=== PATIENT | male | born 1960 | race Caucasian/White ===

== ENCOUNTER 2018-08-28 01:20 | Inpatient (IN) | payer OTHER ==
--- NOTE | 2018-08-28 01:23 | ED ---
Chest Pain HPI - General Stated Complaint: Chest Pain Time Seen by Provider: 08/28/18 01:21 - History of Present Illness Initial Comments: Is a 57-year-old gentleman with a history of known coronary artery disease, hyperlipidemia and hypertension. Patient has a known history of coronary artery disease with stenting in the past, most recently patient reports that he was stented approximately a month ago while visiting [place]. Patient reports that since that time he has been compliant with his aspirin, Brilenta and metoprolol, he is only been intermittently compliant with his statin medication. Patient reports that this evening he was sitting in his chair he had been perusing the Internet when he began to feel some chest pain. He describes it as a pressure in his left chest identical to previous acute coronary events. Patient reports that the pain was approximately a 5 out of 10 in intensity. Pain persisted for over an hour before he decided to call EMS. Upon EMS arrival he was given oxygen, 324 of aspirin and nitro. Patient reports that the discomfort decreased from a 5 out of 10 intensity to a 2 out of 10 in intensity after nitro. - Related Data Home Medications Medication Instructions Recorded Confirmed Aspirin [Adult Low Dose Aspirin EC] 81 mg PO 08/28/18 08/28/18 Atorvastatin [Lipitor] 40 mg PO HS 08/28/18 08/28/18 Metoprolol Tartrate [Lopressor] 12.5 mg PO BID 08/28/18 08/28/18 Ticagrelor [Brilinta] 90 mg PO BID 08/28/18 08/28/18 Allergies Allergy/AdvReac Type Severity Reaction Status Date / Time No Known Allergies Allergy Verified 08/28/18 01:35 Review of Systems ROS Statement: Those systems with pertinent positive or pertinent negative responses have been documented in the HPI. ROS Other: All systems not noted in ROS Statement are negative. EKG Findings - EKG Comments: EKG Findings:: EKG was obtained at 1:26 AM for evaluation of chest pain EKG with a rate of 57 now complex rhythm is sinus bradycardia, there is normal axis, there are normal intervals, VA 150, QRS 118, QTC is 395. There are ST depressions in lead 2 T wave inversions in lead [address] elevations. There are no previous EKGs for comparison. Past Medical History - Past Family History Mother Additional Family Medical History / Comment(s): had cardiac issues; anuerysm General Exam - General Exam Comments Initial Comments: Physical Exam GENERAL: Patient is well-developed and well-nourished. Patient is nontoxic and well- hydrated and is in no distress. HENT: Normocephalic, Atraumatic. EYES: PERRL, EOMI PULMONARY: Unlabored respirations. No audible rales rhonchi or wheezing was noted. CARDIOVASCULAR: There is a regular rate and rhythm without any murmurs gallops or rubs. ABDOMEN: Soft and nontender with normal bowel sounds. SKIN: Skin is clear with no lesions or rashes and otherwise unremarkable. : Deferred NEUROLOGIC: Patient is alert and oriented x3. Moving all extremities spontaneously MUSCULOSKELETAL: Normal extremities with adequate strength and full range of motion. No lower extremity swelling or edema. No calf tenderness. PSYCHIATRIC: Normal psychiatric evaluation. Limitations: no limitations Course Vital Signs 08/28/18 08/28/18 08/28/18 01:25 01:29 03:21 Temperature 98.6 F Pulse Rate 61 56 L 56 L Pulse Rate [ Pulse Oximetery ] Respiratory 16 20 20 Rate Blood Pressure 146/79 146/79 146/86 Blood Pressure [Right Arm] O2 Sat by Pulse 98 99 100 Oximetry 08/28/18 08/28/18 04:00 04:04 Temperature 97.8 F 98.6 F Pulse Rate 50 L Pulse Rate [ 55 L Pulse Oximetery ] Respiratory 16 16 Rate Blood Pressure 141/82 Blood Pressure 144/81 [Right Arm] O2 Sat by Pulse 99 99 Oximetry Chest Pain [facility] The patient was seen and evaluated, history is obtained from the patient and at bedside next line patient is a 57-year-old gentleman with known coronary artery disease presenting with pressure-like chest pain that began without p rovocation. The patient describes the pain is identical to previous cardiac events EKG sinus bradycardia, Q waves in inferior leads, no acute ST elevations Cardiac workup was initiated Patient with mild elevation of trop, will admit for serial trops and evaluation by cardiology Patient reports chest pain never more than 2/10 in the ER The patient care was discussed with Dr. Stevie Duran who accepts the admission with consult to cardiology. Disposition Clinical Impression: Chest pain, Elevated troponin Disposition: ADMITTED IP TO THIS HOSP Condition: Stable Is patient prescribed a controlled substance at d/c from ED?: No
[2018-08-28 02:18] LABS: Basophils % (A) 1 %; Eosinophils # (A) 0.1 k/uL (0-0.7); Eosinophils % (A) 3 %; HCT 43.2 % (39.0-53.0); HGB 14.4 gm/dL (13.0-17.5); Lymphocytes # (A) 1.3 k/uL (1.0-4.8); Lymphocytes % (A) 28 %; MCH 29.2 pg (25.0-35.0); MCHC 33.4 g/dL (31.0-37.0); MCV 87.5 fL (80.0-100.0); Mean Platelet Volume 6.9; Monocytes # (A) 0.4 k/uL (0-1.0); Monocytes % (A) 8 %; Neutrophils # (A) 2.6 k/uL (1.3-7.7); Neutrophils % (A) 57 %; Platelet Count 201 k/uL (150-450); RBC 4.94 m/uL (4.30-5.90); RDW 13.3 % (11.5-15.5); WBC 4.6 k/uL (3.8-10.6)
--- NOTE | 2018-08-28 02:22 | XR ---
EXAM: XR Chest, 2 Views CLINICAL HISTORY: ITS.REASON XR Reason: Chest Pain TECHNIQUE: Frontal and lateral views of the chest. COMPARISON: No relevant prior studies available. FINDINGS: Lungs: No consolidation or mass. Pleural space: No effusion. Heart: No cardiomegaly. Mediastinum: Unremarkable. IMPRESSION: No acute cardiopulmonary process.
[2018-08-28 02:32] LABS: Albumin 4.2 g/dL (3.5-5.0); Calcium 9.5 mg/dL (8.4-10.2); Magnesium 2.2 mg/dL (1.6-2.3); Potassium 4.3 mmol/L (3.5-5.1); Total Bilirubin 0.4 mg/dL (0.2-1.3); Total Protein 7.1 g/dL (6.3-8.2)
[2018-08-28] MEDS ORDERED: NITROGLYCERIN SL TABS 0.4 MG TAB SUBLINGUAL PRN ×3 (02:33→14:43)
[2018-08-28 02:48] LABS: INR 0.9 (<1.2); Partial Thromboplastin Time 25.3 sec (22.0-30.0); Prothrombin Time 9.9 sec (9.0-12.0)
[2018-08-28] MEDS: HEPARIN SOD,PORK IN 0.45% NACL 25,000 UNIT in 0.45% NACL 1 250ML.BAG IV SCH (03:17)
--- NOTE | 2018-08-28 05:46 | P.HPIM ---
History of Present Illness H&P Date: 08/28/18 Chief Complaint: Chest pain The patient is a 57-year-old male with a past medical history of hypertension, hyperlipidemia and coronary artery disease with stenting 5 who presents to the ER with chief complaint of chest pain. Apparently the patient recently had stenting X2 done approximately a month ago in [facility]. Today the patient was at rest playing with a fall and when he started having 5 out of 10 substernal dull achy squeezing chest pain with radiation to his back. He denied any sweats, nausea or vomiting but did report some shortness of br eath, the patient reported feeling that his discomfort was similar to his prior heart attack. He reports compliance with all of his cardiac medications including aspirin, Brilinta and his statin regimen. On arrival in the ER the patient received 4 baby aspirin and reported improvement of his chest pain with severity decreasing to 2 out of 10 after nitroglycerin. In the ER the patient had a comprehensive workup EKG showed sinus bradycardia with ST depression in leads 2 T wave inversions in lead [address] elevations. There are no previous EKGs for comparison. The patient's troponins were e levated at 0.068, NT- pro-BNP 226 Review of Systems Pertinent positives per HPI all other systems otherwise negative Past Medical History Past Medical History: Coronary Artery Disease (CAD), Chest Pain / Angina, Hyperlipidemia, Myocardial Infarction (AK) Last Myocardial Infarction Date:: 07/2018 History of Any Multi-Drug Resistant Organisms: None Reported Past Surgical History: Heart Catheterization, Heart Catheterization With Stent Additional Past Surgical History / Comment(s): AK in previous in [address]; AK in July 2018 with 2 stents placed Past Anesthesia/Blood Transfusion Reactions: No Reported Reaction Date of Last Stent Placement:: 2018 Past Psychological History: No Psychological Hx Reported Smoking Status: Never smoker - Past Family History Mother Additional Family Medical History / Comment(s): had cardiac issues; anuerysm Medications and Allergies Home Medications Medication Instructions Recorded Confirmed Type Aspirin [Adult Low Dose Aspirin EC] 81 mg PO 08/28/18 08/28/18 History Atorvastatin [Lipitor] 40 mg PO HS 08/28/18 08/28/18 History Metoprolol Tartrate [Lopressor] 12.5 mg PO BID 08/28/18 08/28/18 History Ticagrelor [Brilinta] 90 mg PO BID 08/28/18 08/28/18 History Allergies Allergy/AdvReac Type Severity Reaction Status Date / Time No Known Allergies Allergy Verified 08/28/18 01:35 Physical Exam Vitals: Vital Signs Temp Pulse Pulse Resp BP BP Pulse Ox 08/28/18 04:04 98.6 F 50 L 16 141/82 99 08/28/18 04:00 97.8 F 55 L 16 144/81 99 08/28/18 03:21 56 L 20 146/86 100 08/28/18 01:29 56 L 20 146/79 99 08/28/18 01:25 98.6 F 61 16 146/79 98 Intake and Output 08/27/18 08/27/18 08/28/18 14:59 22:59 06:59 Intake Total 920 Balance 920 Intake: IV 20 0.9@ 20 20 Amount of Fluid Infused ( 900 ml) Other: # Voids 1 Weight 72.6 kg Constitutional: No acute distress, conversant, pleasant Eyes: Anicteric sclerae, moist conjunctiva, no lid-lag, PERRLA ENMT: NC/AT,Oropharynx clear, no erythema, exudates Neck:Supple, FROM, no masses, or JVD, No carotid bruits; No thyromegaly Lungs: Clear to auscultation, Clear to percussion, Normal respiratory effort, no accessory muscle use Cardiovascular: Heart regular in rate and rhythm, No murmurs, gallops, or rubs no peripheral edema Abdominal: Soft Nontender, nom distended, no guarding, no rebound or rigidity, Normoactive bowel sounds No hepatomegaly, No splenomegaly, No palpable mass No abdominal wall hernia noted Skin: Normal temperature, tone, texture, turgor, No induration No subcutaneous nodules, No rash, lesions, No ulcers Extremities:No digital cyanosis No clubbing, Pedal pulses intact and symmetrical Radial pulses intact and symmetrical Normal gait and station, No calf tenderness Psychiatric: Alert and oriented to person, place and time, Appropriate affect Intact judgement Neuro: Muscles Strength 5/5 in all 4 extremities, Sensation to light touch grossly present throughout, Cranial nerves II-XII grossly intact. No focal sensory deficits Results CBC & Chem 7: 08/28/18 02:00 08/28/18 02:00 Labs: Abnormal Lab Results - Last 24 Hours (Table) 08/28/18 Range/Units 02:00 Troponin I 0.068 H* (0.000-0.034) ng/mL Thrombosis Risk Factor Assmnt - Choose All That Apply Any of the Below Risk Factors Present?: Yes Each Factor Represents 1 point: Acute AK, Age 41-60 years Other Risk Factors: No Other congenital or acquired thrombophilia - If yes, enter type in comment: No Thrombosis Risk Factor Assessment Total Risk Factor Score: 2 Thrombosis Risk Factor Assessment Level: Low Risk Assessment and Plan (1) Chest pain Current Visit: Yes Status: Acute Code(s): R07.9 - CHEST PAIN, UNSPECIFIED SNOMED Code(s): 67801424 (2) Presence of stent in coronary artery in patient with coronary artery disease Current Visit: Yes Status: Acute Code(s): I25.10 - ATHSCL HEART DISEASE OF [place] CORONARY ARTERY W/O ANG PCTRS; Z95.5 - PRESENCE OF CORONARY ANGIOPLASTY IMPLANT AND GRAFT SNOMED Code(s): 321861584 (3) Essential hypertension Current Visit: Yes Status: Acute Code(s): I10 - ESSENTIAL (PRIMARY) HYPERTENSION SNOMED Code(s): 00397073 (4) Bradycardia Current Visit: Yes Status: Acute Code(s): R00.1 - BRADYCARDIA, UNSPECIFIED SNOMED Code(s): 45455271 Plan: The patient is placed in observation anticipate a less than 2 midnight stay with atypical chest pain but does have a history of coronary artery disease with most recent stenting approximately a month ago, patient does have elevation of his troponin and does have noted a EKG abnormalities. Cardiology is consulted for further recommendations will plan a echocardiogram and we'll continue the patient on ACS order set with aspirin. Statin therapy and heparin drip. His home medications are continued including his Brilinta and Lopressor. Continue to follow patient's clinical course CODE STATUS: Full code Discussed plan of care with: Patient Anticipated discharge: 1-2 days Time with Patient: Greater than 30
[2018-08-28] MEDS: TICAGRELOR 90 MG TAB PO SCH ×2 (08:37→21:04)
[2018-08-28] MEDS ORDERED: METOPROLOL TARTRATE 25 MG TAB PO SCH (09:00)
[2018-08-28 09:08] LABS: Mean Platelet Volume 7.4; Platelet Count 195 k/uL (150-450)
--- NOTE | 2018-08-28 09:08 | P.CRDCN ---
History of Present Illness Consult date: 08/28/18 Requesting physician: Stevie Rea Consult reason: chest pain Chief complaint: Chest pain History of present illness: This is a pleasant 57-year-old gentleman with known history of hypert ension, hyperlipidemia, coronary artery disease with stenting of the RCA mid and proximal as well as PDA stenting 7 years ago in [facility], most recently approximately a month ago patient underwent angioplasty and stenting of the mid and proximal LAD while visiting in [place], resides in this area now. Patient presents to the hospital on this occasion with symptoms of midsternal chest pr essure and heaviness, he states that the symptoms reminded him of what he had prior to his stent placement. Patient was given sublingual nitroglycerin in the EMS, on arrival to the hospital again develop more symptoms. My examination this morning he is currently chest pain-free. His EKG on arrival here showed a normal sinus rhythm with inferior T-wave inversion, and nonspecific changes in the anterior leads. Chest x-ray did not reveal any acute process. I pressure on arrival here 146/78 with a heart rate of 60, 98% on room air. Blood pressure this morning 125/70 with a heart rate of 50, 98% on 2 L of oxygen. White blood cell count 4.6, hemoglobin 14.4, platelet count 201. Sodium 142, potassium 4.3, BUN 19 and creatinine 1.0. Magnesium 2.2. BNP level 226, troponin 0.068. At the time of my examination this morning, patient does have a dull pressure that he is rating approximately a 2 this morning. Past Medical History Past Medical History: Coronary Artery Disease (CAD), Chest Pain / Angina, Hyperlipidemia, Myocardial Infarction (CA) Last Myocardial Infarction Date:: 07/2018 History of Any Multi-Drug Resistant Organisms: None Reported Past Surgical History: Heart Catheterization, Heart Catheterization With Stent Additional Past Surgical History / Comment(s): CA in previous in [address]; CA in July 2018 with 2 stents placed Past Anesthesia/Blood Transfusion Reactions: No Reported Reaction Date of Last Stent Placement:: 2018 Past Psychological History: No Psychological Hx Reported Smoking Status: Never smoker - Past Family History Mother Additional Family Medical History / Comment(s): had cardiac issues; anuerysm Medications and Allergies Home Medications Medication Instructions Recorded Confirmed Type Aspirin [Adult Low Dose Aspirin EC] 81 mg PO 08/28/18 08/28/18 History Atorvastatin [Lipitor] 40 mg PO HS 08/28/18 08/28/18 History Metoprolol Tartrate [Lopressor] 12.5 mg PO BID 08/28/18 08/28/18 History Ticagrelor [Brilinta] 90 mg PO BID 08/28/18 08/28/18 History Allergies Allergy/AdvReac Type Severity Reaction Status Date / Time No Known Allergies Allergy Verified 08/28/18 08:38 Physical Exam Vitals: Vital Signs Temp Pulse Pulse Resp BP BP Pulse Ox 08/28/18 08:00 97.4 F L 55 L 20 125/79 98 08/28/18 04:04 98.6 F 50 L 16 141/82 99 08/28/18 04:00 97.8 F 55 L 16 144/81 99 08/28/18 03:21 56 L 20 146/86 100 08/28/18 01:29 56 L 20 146/79 99 08/28/18 01:25 98.6 F 61 16 146/79 98 Intake and Output 08/27/18 08/28/18 08/28/18 22:59 06:59 14:59 Intake Total 920 0 Balance 920 0 Intake: IV 20 0.9@ 20 20 Amount of Fluid Infused ( 900 ml) Oral 0 Other: # Voids 1 Weight 72.6 kg PHYSICAL EXAMINATION: GENERAL: 57-year-old gentleman in no acute distress at the time of my examination HEENT: Head is atraumatic, normocephalic. Pupils equal, round. Sclera anicteric. Conjunctiva are clear. Mucous membranes of the mouth are moist. Neck is supple. There is no elevated jugular venous pressure. No carotid bruit is heard. HEART EXAMINATION: Heart S1, S2 normal. No murmur or gallop heard. CHEST EXAMINATION: Lungs are clear to auscultation and precussion. No chest wall tenderness is noted on palpation or with deep breathing. ABDOMEN: Soft, nontender. Bowel sounds are heard. No organomegaly noted. EXTREMITIES: 2+ peripheral pulses with no evidence of peripheral edema and no calf tenderness noted. NEUROLOGIC patient is awake, alert and oriented 3 . . Results 08/28/18 02:00 08/28/18 02:00 Cardiac Enzymes 08/28/18 08/28/18 Range/Units 02:00 02:00 AST 25 (17-59) U/L Troponin I 0.068 H* (0.000-0.034) ng/mL Coagulation 08/28/18 Range/Units 02:00 PT 9.9 (9.0-12.0) sec APTT 25.3 (22.0-30.0) sec CBC 08/28/18 Range/Units 02:00 WBC 4.6 (3.8-10.6) k/uL RBC 4.94 (4.30-5.90) m/uL Hgb 14.4 (13.0-17.5) gm/dL Hct 43.2 (39.0-53.0) % Plt Count 201 (150-450) k/uL Comprehensive Metabolic Panel 08/28/18 Range/Units 02:00 Sodium 142 (137-145) mmol/L Potassium 4.3 (3.5-5.1) mmol/L Chloride 106 (98-107) mmol/L Carbon Dioxide 29 (22-30) mmol/L BUN 19 (9-20) mg/dL Creatinine 1.08 (0.66-1.25) mg/dL Glucose 99 (74-99) mg/dL Calcium 9.5 (8.4-10.2) mg/dL AST 25 (17-59) U/L ALT 33 (21-72) U/L Alkaline Phosphatase 89 (38-126) U/L Total Protein 7.1 (6.3-8.2) g/dL Albumin 4.2 (3.5-5.0) g/dL Current Medications Generic Name Dose Route Start Last Admin Trade Name Freq PRN Reason Stop Dose Admin Aspirin 325 mg 08/29/18 09:00 Aspirin PO DAILY [facility] Atorvastatin Calcium 40 mg 08/28/18 21:00 Lipitor PO HS [facility] Heparin Sodium/Sodium Chloride 250 mls @ 8.709 mls/hr 08/28/18 02:45 08/28/18 03:17 25,000 unit/ Sodium Chloride IV 12 units/kg/hr .Q24H ERA 8.709 mls/hr Administration Protocol 12 UNITS/KG/HR Metoprolol Tartrate 25 mg 08/28/18 09:00 Lopressor PO BID [facility] Nitroglycerin 0.4 mg 08/28/18 02:33 Nitrostat SUBLINGUAL Q5M PRN Chest Pain Ticagrelor 90 mg 08/28/18 09:00 08/28/18 08:37 Brilinta PO 90 mg BID ERA Administration Intake and Output 08/27/18 08/28/18 08/28/18 22:59 06:59 14:59 Intake Total 920 0 Balance 920 0 Intake: IV 20 0.9@ 20 20 Amount of Fluid Infused ( 900 ml) Oral 0 Other: # Voids 1 Weight 72.6 kg 08/28/18 02:00 08/28/18 02:00 EKG Interpretations (text) EKG shows normal sinus rhythm with inferior Assessment and Plan Plan: Assessment and plan #1 symptoms of midsternal chest pressure and heaviness, suggestive of possible acute coronary syndrome. Troponin 0.068. EKG shows normal sinus rhythm with T wave changes noted in the inferior leads #2 known history of coronary artery disease with prior RCA and PDA stenting 7 years ago, most recently patient underwent proximal and mid LAD stenting of months ago in [place] #3 hypertension #4 hyperlipidemia Plan We will obtain 2 subsequent troponins, obtain echocardiogram with Doppler study. Decrease aspirin to 81 mg daily as the patient is on Brilinta. Continue Brilinta, metoprolol, and Lipitor. According to the patient, he has been taking his medications regularly at home, however he does state that he has missed a few doses of statin. Patient has been advised to undergo repeat cardiac catheterization, the risks and the benefits were explained to him in detail and he is willing to proceed. Further recommendations to follow. DNP note has been reviewed, I agree with a documented findings and plan of care. Patient was seen and examined.
[2018-08-28] MEDS ORDERED: ALPRAZolam 0.5 MG TAB PO PRN (10:45)
[2018-08-28] MEDS ORDERED: SODIUM CHLORIDE 0.9% 1,000 ML in EMPTY BAG 1 BAG IV ONE (10:45)
[2018-08-28] MEDS ORDERED: ATORVASTATIN 80 MG TAB PO STA (10:45)
[2018-08-28] MEDS ORDERED: ALPRAZolam 0.25 MG TAB PO PRN (10:45)
[2018-08-28] MEDS ORDERED: ASPIRIN 325 MG TAB PO STA (10:45)
--- NOTE | 2018-08-28 11:19 | P.PN ---
Subjective Chart was reviewed and patient interviewed. Discussed with patient's nurse as well. Patient was admitted for chest pain and elevated troponin started on heparin drip and his home antiplatelets continued. Currently his chest pain-free. REVIEW OF SYSTEMS: CONSTITUTIONAL: No fever or chills HEENT: No changes in vision or voice CARDIOVASCULAR: no chest pain or abnormal heart beats, or any swelling in ankles or feet. RESPIRATORY: No wheezing or coughing. GASTROINTESTINAL: No abdominal pain, no nausea no vomiting no constipation or diarrhea GENITOURINARY: no any urinary urgency, frequency or burning, and there has been no blood in her urine. no flank pain. MUSCULOSKELETAL: She notes full range of motion of all her joints without pain or swelling. NEUROLOGICAL: , no headache. no vision changes, or fainting. No numbness or tingling. Objective - Vital Signs Vital signs: Vital Signs Temp 97.4 F L 08/28/18 08:00 Pulse 55 L 08/28/18 08:00 Resp 20 08/28/18 08:00 BP 125/79 08/28/18 08:00 Pulse Ox 98 08/28/18 08:00 Intake & Output 08/27/18 08/28/18 08/28/18 18:59 06:59 18:59 Intake Total 920 62.705 Balance 920 62.705 Weight 72.6 kg Intake: IV 20 0.9@ 20 20 Amount of Fluid Infused ( 900 ml) Intake, IV Titration 62.705 Amount Heparin Sod,Pork in 0.45% 62.705 NaCl 25,000 unit In 0.45 % NaCl 1 250ml.bag @ 12 UNITS/KG/HR 8.709 mls/hr IV .Q24H [facility] Rx#: [id number] Oral 0 Other: # Voids 1 - Exam Vital Signs: I have reviewed the vital signs. GENERAL: Well-nourished, Well-developed , no apparent distress, cooperative Eyes: PERRL, extraoculry movements intact, clear conjunctiva Head: : Atraumatic external nose and ears, oropharyngeal mucosa is moist without lesions or exudates Neck: Symmetric, trachea midline, No thyromegaly, no masses or neck vain pulsation, no neck rigidity CVS: +S1/S2, No murmurs or gallops. Peripheral pulses 2+ and equal in all extremities. RESP: Unlabored respiratory effort. Clear to auscultation bilaterally. Abdomen: Bowel sounds present in all 4 quadrants, Soft to palpation, Nontender/Nondistended, No hepatosplenomegaly, no hernias or masses, no CVA tnderness Musculoskeletal: Extremities w/o deformity, No cyanosis or clubbing, no joint swelling Skin: Warm, Dry. No rashes or lesions Psych: Awake, Alert, & Oriented (AAO) x3 Appropriate mood and affect - Labs CBC & Chem 7: 08/28/18 08:39 08/28/18 02:00 Labs: Abnormal Lab Results - Last 24 Hours (Table) 08/28/18 08/28/18 08/28/18 Range/Units 02:00 08:39 08:39 APTT 41.5 H (22.0-30.0) sec Troponin I 0.068 H* 0.845 H* (0.000-0.034) ng/mL Assessment and Plan Plan: Assessment 1. Chest pain 2. Coronary artery disease 3. Hyperlipidemia Plan: Continue heparin, antiplatelets, beta oralia and statin Cardiology has evaluated and plan is to proceed with cardiac catheterization today
--- NOTE | 2018-08-28 12:41 | ECHOF ---
Referral Reason:CAD, chest pain, elevated troponin MEASUREMENTS -------- HEIGHT: 170.2 cm WEIGHT: 77.1 kg BP: 144/81 IVSd: 1.3 cm (0.6 - 1.1) LVIDd: 4.3 cm (3.9 - 5.3) LVPWd: 1.1 cm (0.6 - 1.1) IVSs: 1.5 cm LVIDs: 3.9 cm LVPWs: 1.1 cm RVIDd: 2.5 cm (< 3.3) LAESV Index (A-L): 29.11 ml/m Ao Diam: 3.1 cm (2.0 - 3.7) LA Diam: 4.4 cm (2.7 - 3.8) AV Cusp: 2.0 cm (1.5 - 2.6) EPSS: 0.3 cm MV E Dm: 0.72 m/s MV DecT: 183 ms MV A Dm: 0.45 m/s MV E/A Ratio: 1.61 AR PHT: 641 ms RAP: 5.00 mmHg RVSP: 32.75 mmHg MV EF SLOPE: 117.86 mm/s (70 - 150) MV EXCURSION: 14.23 mm (> 18.000) FINDINGS -------- Sinus rhythm. This was a technically good study. The left ventricular size is normal. There is mild concentric left ventricular hypertrophy. Overa ll left ventricular systolic function is low-normal with, an EF between 50 - 55 %. Inferior Hypokin esis The right ventricle is normal in size. The left atrium is mildly dilated. LA is midly dilated 29-33ml/m2. The right atrial size is normal. Interatrial and interventricular septum intact. There is mild aortic valve sclerosis. There is mild aortic regurgitation. Mild mitral annular calcification present. Mild mitral regurgitation is present. Mild tricuspid regurgitation present. There is no evidence of pulmonary hypertension. The right v entricular systolic pressure, as measured by Doppler, is 32.75mmHg. Trace/mild (physiologic) pulmonic regurgitation. The aortic root size is normal. Normal inferior vena cava with normal inspiratory collapse consistent with estimated right atrial pre ssure of 5 mmHg. There is no pericardial effusion. CONCLUSIONS -------- 1. The left ventricular size is normal. 2. There is mild concentric left ventricular hypertrophy. 3. Overall left ventricular systolic function is low-normal with, an EF between 50 - 55 %. 4. Inferior Hypokinesis 5. The right ventricle is normal in size. 6. The left atrium is mildly dilated. 7. LA is midly dilated 29-33ml/m2. 8. The right atrial size is normal. 9. Interatrial and interventricular septum intact. 10. There is mild aortic valve sclerosis. 11. There is mild aortic regurgitation. 12. Mild mitral annular calcification present. 13. Mild mitral regurgitation is present. 14. Mild tricuspid regurgitation present. 15. There is no evidence of pulmonary hypertension. 16. The right ventricular systolic pressure, as measured by Doppler, is 32.75mmHg. 17. Trace/mild (physiologic) pulmonic regurgitation. 18. The aortic root size is normal. 19. Normal inferior vena cava with normal inspiratory collapse consistent with estimated right atrial pressure of 5 mmHg. 20. There is no pericardial effusion. PLANT WIRE CHIEF: [place] RDCS
[2018-08-28] MEDS ORDERED: IV FLUID CONTINUATION 1,000 ML IV ONE (13:50)
[2018-08-28] MEDS ORDERED: VERAPAMIL 2.5 MG/ML 2 ML AMP ONE (13:59)
[2018-08-28] MEDS ORDERED: LIDOCAINE 1% INJ 10MG/ML (20 ML MDV) ONE (13:59)
[2018-08-28] MEDS ORDERED: MIDAZOLAM (PF) 2 MG/2 ML VIAL IV ONE ×2 (14:12→14:23)
[2018-08-28] MEDS ORDERED: LIDOCAINE 1% INJ 10MG/ML (20 ML MDV) SQ ONE (14:14)
[2018-08-28] MEDS: VERAPAMIL SYRINGE (5 MG/10 ML) INTRAARTER ONE ×2 (14:16→14:38)
[2018-08-28] MEDS ORDERED: HEPARIN SODIUM 1,000 UN/ML (10ML VL) IV ONE (14:17)
[2018-08-28] MEDS ORDERED: IOPAMIDOL-370 125ML BTL INJ ONE (14:38)
[2018-08-28] MEDS ORDERED: NITROGLYCERIN SL TABS 0.4 MG TAB SUBLINGUAL ONE ×2 (14:42→14:43)
[2018-08-28] MEDS ORDERED: ZOLPIDEM 5 MG TAB PO PRN (14:43)
[2018-08-28] MEDS ORDERED: RX INFO: IV CONTRAST WAS GIVEN 1 EACH MISC MISCELLANE PRN (14:43)
[2018-08-28] MEDS ORDERED: MAG HYDROX/AL HYDROX/SIMETH 30 ML CUP PO PRN (14:43)
[2018-08-28] MEDS ORDERED: ATROPINE SULFATE 0.1 MG/ML 10ML SYRINGE IV PRN (14:43)
[2018-08-28] MEDS ORDERED: HYDROmorphone 1 MG/ML 1 ML SYRINGE ONE (14:45)
[2018-08-28] MEDS ORDERED: SODIUM CHLORIDE 0.9% 1,000 ML IV SCH (14:45)
[2018-08-28] MEDS ORDERED: HYDROmorphone 1 MG/ML 1 ML SYRINGE IVP ONE (14:46)
--- NOTE | 2018-08-28 20:20 | CC ---
CARDIAC CATHETERIZATION REPORT DATE OF SERVICE: 08/28/2018 PERFORMING PHYSICIAN: Rich Silva MD, scouring train operator. PROCEDURES PERFORMED: 1. Selective right and left coronary angiogram. 2. Left heart catheterization. 3. Successful stenting of the mid right coronary artery using 4.0 x 15 mm Xience drug- eluting stent with an excellent angiographic result. INDICATION: This is a pleasant 57-year-old gentleman who moved to [place] recently from [place]. He has a known history of coronary artery disease and prior stenting of the right coronary artery and LAD. He presented to the hospital with chest discomfort and was found to have abnormal cardiac enzymes. Heart catheterization was advised. APPROACH: Right radial artery. COMPLICATIONS: None. LEVEL OF SEDATION: Moderate with sedation length of 28 minutes. PROCEDURE DESCRIPTION: After obtaining informed consent, the patient was brought to the cardiac clinical lab specialist. The right radial artery was cannulated using micropuncture technique, and the micropuncture wire passed easily. Then I placed a 6-Burkinan sheath in the right radial artery. After that I gave the patient 2 mg of verapamil IA and units of heparin IV. I did after that selective right and left coronary angiogram using JR4 and JL3.5 catheters. The heart catheterization was performed using the JR4 catheter, which flipped into the LV. Then I did a pullback across the aortic valve. The procedure was completed without any complication. After that I did intervene on the right coronary artery. Please see a separate paragraph for that. SELECTIVE CORONARY ANGIOGRAM: 1. The right coronary artery is a large-caliber vessel and is a dominant vessel. The RCA proximally has a stent. The RCA in the mid portion is stented with critical in- stent restenosis that appeared to be in the range of 99.9%. The RCA distally appeared to have mild disease only and bifurcates into PDA and PLV branches. Both appeared to be angiographically normal. 2. The left main is angiographically normal. It bifurcates into left circumflex and left anterior descending artery. 3. The left circumflex is a medium-caliber vessel. It is a nondominant vessel. The proximal circumflex has a lesion that appeared to be in the range of 70% to 80%. This is by the bifurcation of the first obtuse marginal branch, which is involved in the lesion. The mid and distal circumflex appeared to be angiographically normal. The circumflex is only about a 2 mm vessel. 4. The LAD. The LAD is a large-caliber vessel. The proximal LAD appeared to be angiographically normal. It gives rise to the first diagonal branch which has mild disease only. The mid and distal LAD appeared to be angiographically normal. The LAD gives rise to 2 small diagonal branches in the mid to distal portion. HEMODYNAMICS: The left ventricular end-diastolic pressure was about 20 mmHg without significant gradient across the aortic valve. PERCUTANEOUS CORONARY INTERVENTION OF THE RIGHT CORONARY ARTERY: Anticoagulation was initiated using heparin. Subsequently I did check the ACT, which was therapeutic. After that I did engage the RCA using a JR4 guide. A Whisper wire was used to wire the right coronary artery. I did balloon angioplasty using 3.5 x 12 mm balloon before I deployed a x 4.0 x 15 mm Xience drug-eluting stent where the stent was positioned under fluoroscopic guidance and deployed under 12 atmospheres for 20 seconds with the following angiogram showing good angiographic results. The procedure was completed without any complication. CONCLUSION: 1. Critical in-stent restenosis involving the mid RCA. 2. Successful stenting of the mid RCA using 4.0 x 15 mm Xience drug-eluting stent with excellent angiographic results and reduction of stenosis from 99% to 0%. 3. Severe disease involving a medium-sized left circumflex coronary artery. 4. Patent stent in the LAD. POST-PROCEDURE MANAGEMENT: 1. Dual anti-platelet therapy. 2. Risk factor modifications. 3. Myocardial perfusion imaging stress test to assess for ischemia in the left circumflex territory. 4. Follow up with the patient. MMODL / IJN: [id number] /
[2018-08-28] MEDS ORDERED: ATORVASTATIN 40 MG TAB PO SCH (21:00)
[2018-08-28] MEDS: ATORVASTATIN 40 MG TAB PO SCH (21:04)
[2018-08-28] MEDS: METOPROLOL TARTRATE 12.5 MG TAB PO SCH (23:45)
[2018-08-29] MEDS: HEPARIN SOD,PORK IN 0.45% NACL 25,000 UNIT in 0.45% NACL 1 250ML.BAG IV SCH (06:13)
[2018-08-29 06:54] LABS: Mean Platelet Volume 6.8; Platelet Count 189 k/uL (150-450)
[2018-08-29 07:24] LABS: Cholesterol 101 mg/dL (<200); HDL Cholesterol 35 mg/dL (40-60); LDL Cholesterol,Calculated 54 mg/dL (0-99); Triglycerides 62 mg/dL (<150)
[2018-08-29] MEDS: TICAGRELOR 90 MG TAB PO SCH ×2 (08:43→21:15)
[2018-08-29] MEDS: METOPROLOL TARTRATE 12.5 MG TAB PO SCH (08:43)
[2018-08-29] MEDS: ASPIRIN 81 MG PO SCH (08:43)
[2018-08-29] MEDS ORDERED: ASPIRIN 325 MG TAB PO SCH (09:00)
--- NOTE | 2018-08-29 09:17 | P.PN ---
Subjective Chart was reviewed and patient interviewed. Patient had cardiac catheterization yesterday with drug-eluting stent insertion in mid RCA. There are some residual disease in circumflex. Otherwise he is doing well this morning. His chest pain and shortness of breath free. No new complaints REVIEW OF SYSTEMS: CONSTITUTIONAL: No fever or chills HEENT: No changes in vision or voice CARDIOVASCULAR: no chest pain or abnormal heart beats, or any swelling in ankles or feet. RESPIRATORY: No wheezing or coughing. GASTROINTESTINAL: No abdominal pain, no nausea no vomiting no constipation or diarrhea GENITOURINARY: no any urinary urgency, frequency or burning, and there has been no blood in her urine. no flank pain. MUSCULOSKELETAL: She notes full range of motion of all her joints without pain or swelling. NEUROLOGICAL: , no headache. no vision changes, or fainting. No numbness or tingling. Objective - Vital Signs Vital signs: Vital Signs Temp 96.3 F L 08/29/18 08:00 Pulse 16 L 08/29/18 08:00 Resp 16 08/29/18 08:00 BP 121/59 08/29/18 08:00 Pulse Ox 99 08/29/18 08:00 Intake & Output 08/28/18 08/29/18 08/29/18 18:59 06:59 18:59 Intake Total 452.705 Output Total 625 Balance -172.295 Weight 70.9 kg Intake: IV 150 Intake, IV Titration 62.705 Amount Heparin Sod,Pork in 0.45% 62.705 NaCl 25,000 unit In 0.45 % NaCl 1 250ml.bag @ 12 UNITS/KG/HR 8.709 mls/hr IV .Q24H [facility] Rx#: [id number] Oral 240 Output: Urine 625 Other: Voiding Method Toilet # Voids 1 1 - Exam Vital Signs: I have reviewed the vital signs. GENERAL: Well-nourished, Well-developed , no apparent distress, cooperative Eyes: PERRL, extraoculry movements intact, clear conjunctiva Head: : Atraumatic external nose and ears, oropharyngeal mucosa is moist without lesions or exudates Neck: Symmetric, trachea midline, No thyromegaly, no masses or neck vain pulsation, no neck rigidity CVS: +S1/S2, No murmurs or gallops. Peripheral pulses 2+ and equal in all extremities. RESP: Unlabored respiratory effort. Clear to auscultation bilaterally. Abdomen: Bowel sounds present in all 4 quadrants, Soft to palpation, Nontender/Nondistended, No hepatosplenomegaly, no hernias or masses, no CVA t nderness Musculoskeletal: Extremities w/o deformity, No cyanosis or clubbing, no joint swelling Skin: Warm, Dry. No rashes or lesions Psych: Awake, Alert, & Oriented (AAO) x3 Appropriate mood and affect - Labs CBC & Chem 7: 08/29/18 06:36 08/29/18 06:36 Labs: Abnormal Lab Results - Last 24 Hours (Table) 08/28/18 08/28/18 08/29/18 Range/Units 08:39 08:39 06:36 APTT 41.5 H (22.0-30.0) sec Troponin I 0.845 H* (0.000-0.034) ng/mL HDL Cholesterol 35 L (40-60) mg/dL Assessment and Plan Plan: 1. Non-STEMI Status post PCI with ANDREEA to RCA Dual antiplatelet therapy Beta oralia Statin Lifestyle modifications 2. Hypertension Continue current medications blood pressure stable 3. Hyperlipidemia Encourage adherence to statin We'll plan for discharge home once cleared by cardiology
[2018-08-29 11:20] VITALS: BMI 24.5
--- NOTE | 2018-08-29 14:08 | P.PN ---
Subjective Progress Note Date: 08/29/18 This is a pleasant 57-year-old gentleman with known history of hypertension, hyperlipidemia, coronary artery disease with stenting of the RCA mid and proximal as well as PDA stenting 7 years ago in [facility], most recently approximately a month ago patient underwent angioplasty and stenting of the mid and proximal LAD while visiting in [place], resides in this area now. Patient presents to the hospital on this occasion with symptoms of midsternal chest pressure and heaviness, he states that the symptoms reminded him of what he had prior to his stent placement. Patient was given sublingual nitroglycerin in the EMS, on arrival to the hospital again develop more symptoms. My exa mination this morning he is currently chest pain-free. His EKG on arrival here showed a normal sinus rhythm with inferior T-wave inversion, and nonspecific changes in the anterior leads. Chest x-ray did not reveal any acute process. I pressure on arrival here 146/78 with a heart rate of 60, 98% on room air. Blood pressure this morning 125/70 with a heart rate of 50, 98% on 2 L of oxygen. White blood cell count 4.6, hemoglobin 14.4, platelet count 201. Sodium 142, potassium 4.3, BUN 19 and creatinine 1.0. Magnesium 2.2. BNP level 226, troponin 0.068. At the time of my examination this morning, patient does have a dull pressure that he is rating approximately a 2 this morning. 08/29/2018. Patient did undergo cardiac catheterization yesterday, was found to have a critical in-stent restenosis involving the mid RCA, he underwent successful stenting of that vessel. Patient was seen and examined this morning, feels well, denies any dizziness or lightheadedness. Heart rate is noted to be in the 40-50 range. EKG shows a sinus bradycardia with progression of changes post- PCI. Blood pressure 120/60. 99% on room air. Creatinine 0.8. Objective - Vital Signs Vital signs: Vital Signs Temp 96.3 F L 08/29/18 08:00 Pulse 52 L 08/29/18 12:00 Resp 16 08/29/18 12:00 BP 116/72 08/29/18 12:00 Pulse Ox 99 08/29/18 12:00 Intake & Output 05/06/19 05/07/19 05/07/19 18:59 06:59 18:59 Intake Total 452.705 480 Output Total 625 Balance -172.295 480 Weight 70.9 kg 70.9 kg Intake: IV 150 Intake, IV Titration 62.705 Amount Heparin Sod,Pork in 0.45% 62.705 NaCl 25,000 unit In 0.45 % NaCl 1 250ml.bag @ 12 UNITS/KG/HR 8.709 mls/hr IV .Q24H [facility] Rx#: [id number] Oral 240 480 Output: Urine 625 Other: Voiding Method Toilet Toilet # Voids 1 1 - Exam PHYSICAL EXAMINATION: GENERAL: 57-year-old gentleman in no acute distress at the time of my examination HEENT: Head is atraumatic, normocephalic. Pupils equal, round. Sclera anicteric. Conjunctiva are clear. Mucous membranes of the mouth are moist. Neck is supple. There is no elevated jugular venous pressure. No carotid bruit is heard. HEART EXAMINATION: Heart S1, S2 normal. No murmur or gallop heard. CHEST EXAMINATION: Lungs are clear to auscultation and precussion. No chest wall tenderness is noted on palpation or with deep breathing. ABDOMEN: Soft, nontender. Bowel sounds are heard. No organomegaly noted. EXTREMITIES: 2+ peripheral pulses with no evidence of peripheral edema and no calf tenderness noted. Right radial site clean and dry, good distal pulse. NEUROLOGIC patient is awake, alert and oriented 3 . - Labs CBC & Chem 7: 08/29/18 06:36 08/29/18 06:36 Labs: Abnormal Lab Results - Last 24 Hours (Table) 08/29/18 Range/Units 06:36 HDL Cholesterol 35 L (40-60) mg/dL Assessment and Plan Plan: Assessment and plan #1 symptoms of midsternal chest pressure and heaviness, suggestive of possible acute coronary syndrome. Troponin 0.068. EKG shows normal sinus rhythm with T wave changes noted in the inferior leads #2 known history of coronary artery disease with prior RCA and PDA stenting 7 years ago, most recently patient underwent proximal and mid LAD stenting of months ago in [place] #3 hypertension #4 hyperlipidemia Plan Echocardiogram with Doppler study was performed which revealed a normal left ventricular systolic function. We will decrease the beta oralia to 12-1/2 mg daily, continue to monitor the patient for 24 hours and plan for possible discharge home in the morning if stable. DNP note has been reviewed, I agree with a documented findings and plan of care. Patient was seen and examined.
[2018-08-29] MEDS: ATORVASTATIN 40 MG TAB PO SCH (21:15)
[2018-08-30 05:47] VITALS: TEMP 98.1
[2018-08-30] MEDS: ASPIRIN 81 MG PO SCH (08:48)
[2018-08-30] MEDS: TICAGRELOR 90 MG TAB PO SCH (08:48)
[2018-08-30 08:51] VITALS: BP 109/73; PULSE 75; RESP 16
[2018-08-30] MEDS ORDERED: METOPROLOL TARTRATE 12.5 MG TAB PO SCH (09:00)
--- NOTE | 2018-08-30 11:02 | P.DS ---
Providers Date of admission: 08/28/18 03:31 Expected date of discharge: 08/30/18 Attending physician: Stevie Rea MD Consults: 08/28/18 02:33 Consult Physician Urgent Consulting Provider: Dre Blakely Consult Reason/Comments: chest pain, CAD hx Do you want consulting provider notified?: Yes, Notify in am 08/28/18 14:43 Consult Physician Routine Consulting Provider: Dre Blakely Consult Reason/Comments: Post Interventional patient Do you want consulting provider notified?: Already Contacted Primary care physician: Stated None Hospital Course: 57-year-old male with a past medical history of hypertension, hyperlipidemia and coronary artery disease with stenting 5 who presents to the ER with chief complaint of chest pain. Apparently the patient recently had stenting X2 done approximately a month ago in [facility]. Today the patient was at rest playing with a fall and when he started having 5 out of 10 substernal dull achy squeezing chest pain with radiation to his back. He denied any sweats, nausea or vomiting but did report some shortness of breath, the patient reported feeling that his discomfort was similar to his prior heart attack. He reports compliance with all of his cardiac medications including aspirin, Brilinta and his statin regimen. On arrival in the ER the patient received 4 baby aspirin and reported improvement of his chest pain with severity decreasing to 2 out of 10 after nitroglycerin. In the ER the patient had a comprehensive workup EKG showed sinus bradycardia with ST depression in leads 2 T wave inversions in lead [address] elevations. There are no previous EKGs for comparison. The patient's troponins were elevated at 0.068, NT- pro-BNP 226. Patient was admitted for non-ST elevation FL. Troponins was 0.068, 0.845, EKG showed sinus bradycardia with possible inferior infarct. Lipid panel showed LDL 54 and total cholesterol was 101. Echocardiogram showed EF 50-55% with hypokinesis and mild concentric LVH. Cardiology was consulted and recommended cardiac catheterization. Cardiac cath was done and ANDREEA was placed in the RCA. Patient is a examined prior to discharge. No acute events overnight. Patient reports no chest pain. He denies any dizziness, shortness of breath or palpitations. No nausea or vomiting. No fever or chills. General: [non toxic], [no distress], [appears at stated age] Derm: [warm], [dry] Head: [atraumatic], [normocephalic], [symmetric] Eyes: [EOMI], [no lid lag], [anicteric sclera] Mouth: [no lip lesion], [mucus membranes moist] Cardiovascular: [S1S2 reg], [no murmur], [positive posterior tibial pulse bilateral], Lungs: [CTA bilateral], [no rhonchi, no rales] , [no accessory muscle use] Abdominal: [soft], [ nontender to palpation], [no guarding], [no appreciable organomegaly] Ext: [no gross muscle atrophy], [no edema], [no contractures] Neuro: [ CN II-XI grossly intact], [no focal neuro deficits] Psych: [Alert], [oriented], [appropriate affect] Assessment and Plan non-ST elevation FL Hypertension Hyperlipidemia Stent placement in RCA. Plan: Continue aspirin and Lipitor. Continue metoprolol. Continue Ticagrelor. Follow Cardiology in outpatient setting. BP 109/73. Plan: Continue Metoprolol. Lipid panel shows T. Chol 101 and LDL 54. Plan: Continue Lipitor Plans to follow-up with cardiology in the outpatient setting. Patient is cleared by cardiology. Pertinent Studies: echocardiogram, cardiac catheterization Procedures: cardiac cath Patient Condition at Discharge: Stable Plan - Discharge Summary Discharge Rx Participant: No New Discharge Prescriptions: New Metoprolol Tartrate [Lopressor] 12.5 mg PO DAILY #30 tab Nitroglycerin Sl Tabs [Nitrostat] 0.4 mg SUBLINGUAL Q5M PRN #25 tab PRN Reason: Chest Pain Continue Atorvastatin [Lipitor] 40 mg PO HS Ticagrelor [Brilinta] 90 mg PO BID Aspirin [Adult Low Dose Aspirin EC] 81 mg PO DAILY Discontinued Metoprolol Tartrate [Lopressor] 12.5 mg PO BID No Action Magnesium Oxide 400 mg PO BID Carnitrol 1 tab PO BID Ubidecarenone [Co Q-10] 100 mg PO BID Discharge Medication List Aspirin [Adult Low Dose Aspirin EC] 81 mg PO DAILY 08/28/18 [History] Atorvastatin [Lipitor] 40 mg PO HS 08/28/18 [History] Carnitrol 1 tab PO BID 08/28/18 [History] Magnesium Oxide 400 mg PO BID 08/28/18 [History] Ticagrelor [Brilinta] 90 mg PO BID 08/28/18 [History] Ubidecarenone [Co Q-10] 100 mg PO BID 08/28/18 [History] Metoprolol Tartrate [Lopressor] 12.5 mg PO DAILY #30 tab 08/30/18 [Rx] Nitroglycerin Sl Tabs [Nitrostat] 0.4 mg SUBLINGUAL Q5M PRN #25 tab 08/30/18 [Rx] Follow up Appointment(s)/Referral(s): Rich Silva MD [STAFF PHYSICIAN] - 09/07/18 1:45 pm None,Stated [Primary Care Provider] - 1 Week (Please call insurance for list of primary providers in coverage.) Patient Instructions/Handouts: Heart Healthy Diet (DC), Coronary Intravascular Stent Placement (DC) Activity/Diet/Wound Care/Special Instructions: Please return to the ER with any sudden chest pain, pressure, shortness of breath. Activity limited until follow up appointment with Dr. Silva. Maintain a heart healthy diet of low fat and low salt foods. Call cardiology associates with any concerns [phone]. Discharge Disposition: HOME SELF-CARE
--- NOTE | 2018-08-30 12:19 | P.PN ---
Subjective Progress Note Date: 08/30/18 This is a pleasant 57-year-old gentleman with known history of hypertension, hyperlipidemia, coronary artery disease with stenting of the RCA mid and proximal as well as PDA stenting 7 years ago in [facility], most recently approximately a month ago patient underwent angioplasty and stenting of the mid and proximal LAD while visiting in [place], resides in this area now. Patient presents to the hospital on this occasion with symptoms of midsternal chest pressure and heaviness, he states that the symptoms reminded him of what he had prior to his stent placement. Patient was given sublingual nitroglycerin in the EMS, on arrival to the hospital again develop more symptoms. My exa mination this morning he is currently chest pain-free. His EKG on arrival here showed a normal sinus rhythm with inferior T-wave inversion, and nonspecific changes in the anterior leads. Chest x-ray did not reveal any acute process. I pressure on arrival here 146/78 with a heart rate of 60, 98% on room air. Blood pressure this morning 125/70 with a heart rate of 50, 98% on 2 L of oxygen. White blood cell count 4.6, hemoglobin 14.4, platelet count 201. Sodium 142, potassium 4.3, BUN 19 and creatinine 1.0. Magnesium 2.2. BNP level 226, troponin 0.068. At the time of my examination this morning, patient does have a dull pressure that he is rating approximately a 2 this morning. 08/29/2018. Patient did undergo cardiac catheterization yesterday, was found to have a critical in-stent restenosis involving the mid RCA, he underwent successful stenting of that vessel. Patient was seen and examined this morning, feels well, denies any dizziness or lightheadedness. Heart rate is noted to be in the 40-50 range. EKG shows a sinus bradycardia with progression of changes post- PCI. Blood pressure 120/60. 99% on room air. Creatinine 0.8. 08/30/2018 Patient seen and examined this morning, heart rate in the 70s, denies any chest pain, no difficulty in breathing. Stable for discharge to Objective - Vital Signs Vital signs: Vital Signs Temp 98.1 F 08/30/18 05:05 Pulse 75 08/30/18 08:00 Resp 16 08/30/18 08:00 BP 109/73 08/30/18 08:00 Pulse Ox 98 08/30/18 08:00 Intake & Output 08/29/18 08/30/18 08/30/18 18:59 06:59 18:59 Intake Total 960 100 Balance 960 100 Weight 70.9 kg 70 kg Intake: Oral 960 100 Other: Voiding Method Toilet Toilet # Voids 1 - Exam PHYSICAL EXAMINATION: GENERAL: 57-year-old gentleman in no acute distress at the time of my examination HEENT: Head is atraumatic, normocephalic. Pupils equal, round. Sclera anicteric. Conjunctiva are clear. Mucous membranes of the mouth are moist. Neck is supple. There is no elevated jugular venous pressure. No carotid bruit is heard. HEART EXAMINATION: Heart S1, S2 normal. No murmur or gallop heard. CHEST EXAMINATION: Lungs are clear to auscultation and precussion. No chest wall tenderness is noted on palpation or with deep breathing. ABDOMEN: Soft, nontender. Bowel sounds are heard. No organomegaly noted. EXTREMITIES: 2+ peripheral pulses with no evidence of peripheral edema and no calf tenderness noted. Right radial site clean and dry, good distal pulse. NEUROLOGIC patient is awake, alert and oriented 3 . - Labs CBC & Chem 7: 08/29/18 06:36 08/29/18 06:36 Assessment and Plan Plan: Assessment and plan #1 symptoms of midsternal chest pressure and heaviness, suggestive of possible acute coronary syndrome. Troponin 0.068. EKG shows normal sinus rhythm with T wave changes noted in the inferior leads #2 known history of coronary artery disease with prior RCA and PDA stenting 7 years ago, most recently patient underwent proximal and mid LAD stenting of months ago in [place] #3 hypertension #4 hyperlipidemia Plan Echocardiogram with Doppler study was performed which revealed a normal left ventricular systolic function. Patient may be able to be discharged home today from cardiology's perspective, discharge medications include aspirin 81 mg daily, Lipitor 40 mg daily, metoprolol 12-1/2 mg daily, Brilinta 90 mg twice a day and sublingual nitroglycerin as needed for chest pain. Follow-up appointment with Dr. Salas in one week. DNP note has been reviewed, I agree with a documented findings and plan of care. Patient was seen and examined.
== END 2018-08-30 12:35 | disposition home or self-care (01) | DRG 247 ==
LOC: EC 01:20 → 3SCARD 03:31
PROVIDERS: ADMIT Family Medicine; ATTEND Family Medicine
PROC: B2111ZZ Fluoroscopy of Multiple Coronary Arteries using Low Osmolar Contrast (ICD-10-PCS; 2018-08-28)
PROC: 027034Z Dilation of Coronary Artery, One Artery with Drug-eluting Intraluminal Device, Percutaneous Approach (ICD-10-PCS; principal; 2018-08-28 13:50)
PROC: 4A023N7 Measurement of Cardiac Sampling and Pressure, Left Heart, Percutaneous Approach (ICD-10-PCS; 2018-08-28 13:50)
DX: I21.4 Non-ST elevation (NSTEMI) myocardial infarction (principal); I21.9 Acute myocardial infarction, unspecified; I25.10 Atherosclerotic heart disease of native coronary artery without angina pectoris; I10 Essential (primary) hypertension; R00.1 Bradycardia, unspecified; E78.5 Hyperlipidemia, unspecified; I25.2 Old myocardial infarction; Z79.82 Long term (current) use of aspirin; Z79.899 Other long term (current) drug therapy; Z79.02 Long term (current) use of antithrombotics/antiplatelets; Z95.5 Presence of coronary angioplasty implant and graft
CPT/HCPCS: 36415; 71046; 80053; 80061; 82565; 83735; 83880; 84484; 85025; 85049; 85610; 85730; 93306; 93458; 96365; 99285; C1874

== ENCOUNTER → 2020-07-04 | Outpatient (CLI) | payer OTHER ==
[2020-07-04 11:27] LABS: HGB 14.8 gm/dL (13.0-17.5); MCH 30.5 pg (25.0-35.0); MCHC 32.9 g/dL (31.0-37.0); MCV 92.6 fL (80.0-100.0); Mean Platelet Volume 8.1; Platelet Count 185 k/uL (150-450); RBC 4.86 m/uL (4.30-5.90); RDW 13.9 % (11.5-15.5); WBC 2.6 k/uL (3.8-10.6)
[2020-07-04 11:42] LABS: ALT 42 U/L (4-49); AST 42 U/L (17-59); African American GFR (CKD) >90 (>60 ml/min/1.73 sqM); Albumin 4.1 g/dL (3.5-5.0); Alkaline Phosphatase 102 U/L (38-126); Anion Gap 7 mmol/L; Blood Urea Nitrogen 13 mg/dL (9-20); Calcium 9.5 mg/dL (8.4-10.2); Carbon Dioxide 27 mmol/L (22-30); Chloride 106 mmol/L (98-107); Cholesterol 176 mg/dL (<200); Glucose 109 mg/dL (74-99); HDL Cholesterol 64 mg/dL (40-60); LDL Cholesterol,Calculated 103 mg/dL (0-99); Non-African American GFR(CKD) >90 (>60 ml/min/1.73 sqM); Potassium 4.2 mmol/L (3.5-5.1); Sodium 140 mmol/L (137-145); Total Bilirubin 0.6 mg/dL (0.2-1.3); Total Protein 7.2 g/dL (6.3-8.2); Triglycerides 47 mg/dL (<150)
--- NOTE | 2020-07-04 14:11 | EST ---
EXERCISE STRESS AGE: 59 SEX: Male HT: 5'8" WT: 145 lbs. PROTOCOL: Roebrt STAGE: 4 DURATION OF EXERCISE: 12 minutes HEART RATE REST: 59 BLOOD PRESSURE REST: 125/76 MAXIMUM HEART RATE ACHIEVED: 151 MAXIMUM BLOOD PRESSURE: 216/81 85% MPHR: 136 100% MPHR: 160 METS: 12.3 INDICATIONS: Shortness of breath CLINICAL INFORMATION: Baseline rhythm is a sinus mechanism, rate of 59, normal axis and intervals. Normal electrocardiogram. Baseline blood pressure 125/76 mmHg. Patient exercised on Robert protocol for 12 minutes reaching peak rate 151 beats per minute which is equal to 94% maximum predicted heart rate. Peak blood pressure 216/81 mmHg. Test was terminated secondary to fatigue. There was no chest pain. Electrocardiograph monitoring revealed occasional single PVCs. There was mild increase in the QRS duration at peak exercise with no significant ST-segment changes. CONCLUSION: 1. Excellent exercise tolerance with occasional single PVCs. 2. Probably normal stress electrocardiographic testing with mild increase in the QRS duration at peak exercise and no evidence of diagnostic ST-segment changes. MMODL / IJN: [id number] /
[2020-07-04 18:24] LABS: Hemoglobin A1C 5.3 % (4.0-6.0)
[2020-07-05 06:20] LABS: Prostate Specific Antigen 0.2 ng/mL (0.0-4.5)
== END | disposition home or self-care (01) ==
LOC: RADNMMAIN 08:02
PROVIDERS: ATTEND Internal Medicine Cardiovascular Disease
DX: I49.3 Ventricular premature depolarization (principal); I25.84 Coronary atherosclerosis due to calcified coronary lesion; R06.00 Dyspnea, unspecified
CPT/HCPCS: 80053; 80061; 82306; 83036; 83090; 83880; 84153; 85027; 86141; 93017